=== PATIENT | male | born 1955 | race Caucasian/White ===

== ENCOUNTER → 2017-03-06 | Outpatient (CLI) | payer BC ==
[~2017-03-06] MED LIST: ATORVASTATIN CA80 MG PO; AZITHROMYCIN250 M1 PO; BENAZEPRIL HYDR20 MG PO; HYDROCHLOROTHIA25 M1 PO; LEVOTHYROXINE0.1 M2 PO; LOPRESSOR 25MG.25 MG PO; PHENERGAN25 M3 PO
--- NOTE | 2017-03-06 09:13 | CARDIOVASCULAR REPORT ---
"Cerebrovascular Exam IMPRESSIONS 1. The bilateral vertebral arteries are patent with normal antegrade flow. 2. Study suggests less than 20% stenosis involving the right internal carotid artery and the left internal carotid artery. History: Coronary artery disease. Risk factors: Hypertension. Hyperlipidemia. 1 cardiac stent Carotid duplex study. Complete study and Doppler flow study including spectral analysis, color and [place] scale imaging. Height: Height: 182.9cm. Height: 72in. Weight: Weight: 74.8kg. Weight: 164.7lb. Body mass index: BMI: 22.4kg/m^2. Body surface area: BSA: 1.95m^2. Location: Vascular laboratory. Patient status: Outpatient. Tables: Arterial flow: + +--------+--------+ |Location |V sys |V ed | + +--------+--------+ |Right CCA - proximal|78.6cm/s|29.1cm/s| + +--------+--------+ |Right CCA - distal |101cm/s |31.4cm/s| + +--------+--------+ |Right ECA |119cm/s |--------| + +--------+--------+ |Right ICA - proximal|77.8cm/s|28.3cm/s| + +--------+--------+ |Right ICA - mid |103cm/s |37.7cm/s| + +--------+--------+ |Right ICA - distal |91.9cm/s|39.3cm/s| + +--------+--------+ |Right vertebral |60.8cm/s|--------| + +--------+--------+ |Left CCA - proximal |93.6cm/s|27.2cm/s| + +--------+--------+ |Left CCA - distal |101cm/s |34.2cm/s| + +--------+--------+ |Left ECA |99.9cm/s|--------| + +--------+--------+ |Left ICA - proximal |101cm/s |39.8cm/s| + +--------+--------+ |Left ICA - mid |110cm/s |43.3cm/s| + +--------+--------+ |Left ICA - distal |122cm/s |46.8cm/s| + +--------+--------+ |Left vertebral |62.2cm/s|--------| + +--------+--------+ Velocity ratios: + + + + + + | |Right, V sys|Right, V ed|Left, V sys|Left, V ed| + + + + + + |Max ICA/dist CCA|1.02 |1.25 |1.21 |1.37 | + + + + + + (Report amended ) Electronically signed by: Jm Castorena [id number]"
== END ==
LOC: RT 08:00
DX: I25.10 Atherosclerotic heart disease of native coronary artery without angina pectoris (principal); R20.2 Paresthesia of skin; R20.0 Anesthesia of skin